=== PATIENT | male | born 1975 | race Caucasian/White ===

== ENCOUNTER 2019-02-13 13:09 | Emergency (ER) | payer MEDICAID ==
[2019-02-13 13:10] VITALS: BMI 22.2
[2019-02-13] MEDS ORDERED: TYLENOL W/CODEI1 TAB PO (14:49)
[2019-02-13] MEDS ORDERED: VOLTAREN75 MG PO (14:49)
[2019-02-13 15:14] VITALS: BP 123/75
== END 2019-02-13 15:15 | disposition home or self-care (01) ==
LOC: D.ER 13:09
DX: S22.31XA Fracture of one rib, right side, initial encounter for closed fracture (principal); W19.XXXA Unspecified fall, initial encounter; F17.200 Nicotine dependence, unspecified, uncomplicated